=== PATIENT | male | born 1950 | race Caucasian/White ===

== ENCOUNTER 2020-11-09 03:59 | Inpatient (IN) ==
[2020-11-09] MEDS ORDERED: Magnesium Sulfate IV 3 GM in NS 0.9% 100 ml BAG 100 ML IVPB ONE (04:39)
[2020-11-09 05:32] LABS: Urine Appearance Clear; Urine Bilirubin Negative (Negative); Urine Blood Negative (Negative); Urine Color Yellow; Urine Glucose Negative (Negative); Urine Ketones Negative (Negative); Urine Nitrite Negative (Negative); Urine Protein Negative (Negative); Urine Specific Gravity 1.026 (1.010-1.030); Urine Urobilinogen Negative (Negative)
[2020-11-09 06:01] LABS: Troponin I 0.41 ng/mL (<0.03)
[2020-11-09 06:03] LABS: ALT 60 U/L (7-52); AST 41 U/L (13-39); Albumin 3.9 g/dL (3.2-5.2); Albumin/Globulin Ratio 1.7 (1-3); Alkaline Phosphatase 47 U/L (34-104); Anion Gap 10 mmol/L (2-11); BUN/Creatinine Ratio 24.6 (8-20); Blood Urea Nitrogen 29 mg/dL (6-24); CO2 Carbon Dioxide 24 mmol/L (22-32); Calcium 12.4 mg/dL (8.6-10.3); Chloride 106 mmol/L (101-111); Cholesterol 122 mg/dL; EGFR African American 73.4 (>60); EGFR Non-African American 60.7 (>60); Globulin 2.3 g/dL (2-4); Glucose 179 mg/dL (70-100); HDL Cholesterol 33.8 mg/dL; LDL Cholesterol 52 mg/dL; Magnesium 1.5 mg/dL (1.9-2.7); Potassium 3.9 mmol/L (3.5-5.0); Sodium 140 mmol/L (135-145); Total Protein 6.2 g/dL (6.4-8.9); Triglycerides 179 mg/dL
[2020-11-09 06:17] LABS: TSH Ultra Thyroid Stim Horm 7.43 mcIU/mL (0.34-5.60)
[2020-11-09 06:19] LABS: Free T4 0.87 ng/dL (0.61-1.12)
[2020-11-09 06:30] LABS: Vitamin D Total 25(OH) 30.6 ng/mL (20-50)
[2020-11-09 08:16] LABS: Troponin I 0.47 ng/mL (<0.03)
[2020-11-09 08:26] LABS: ABS Eosinophils 0.1 10^3/ul (0-0.6); ABS Lymphocytes 0.5 10^3/ul (1.0-4.8); ABS Monocytes 0.6 10^3/ul (0-0.8); ABS Neutrophils 3.3 10^3/ul (1.5-7.7); Eosinophil % 1.6 %; Hematocrit 37 % (42-52); Hemoglobin 12.9 g/dL (14.0-18.0); Lymphocyte % 11.5 %; Mean Corpuscular HGB Conc 35 g/dL (31-36); Mean Corpuscular Hemoglobin 31 pg (27-31); Mean Corpuscular Volume 91 fL (80-94); Mean Platelet Volume 8.4 fL (7.4-10.4); Platelet Count 177 10^3/uL (150-450); Red Blood Count 4.12 10^6 /uL (4.18-5.48); Red Cell Distribution Width 13 % (10-15); White Blood Count 4.5 10^3/uL (3.5-10.8)
[2020-11-09] MEDS ORDERED: NS 0.9% 1000 ml BAG 1,000 ML IV SCH (11:00)
[2020-11-09 11:29] LABS: Phosphorus 3.2 mg/dL (2.5-5.0)
[2020-11-09 11:33] LABS: Troponin I 0.45 ng/mL (<0.03)
[2020-11-09] MEDS ORDERED: Potassium Chloride LIQUID 20 MEQ/15 ML LIQUID PO ONE (12:54)
[2020-11-09 13:20] LABS: EGFR African American 69.3 (>60); EGFR Non-African American 57.3 (>60); Magnesium 2.1 mg/dL (1.9-2.7)
[2020-11-09] MEDS: Enoxaparin 80 MG/0.8 ML SYR SUBCUT SCH (13:33)
[2020-11-09] MEDS ORDERED: Midazolam 5 mg/5 ml VIAL 1 mg/ml 5 ml VIAL (5 mg) ONE (13:59)
[2020-11-09] MEDS ORDERED: nitroGLYCERIN DRIP 25,000 MCG/250 ML BTL ONE (13:59)
[2020-11-09] MEDS ORDERED: Heparin 1,000 UNIT/ML 10 ml (10,000 UNITS) CATHLAB/DIALYSIS ONE (13:59)
[2020-11-09] MEDS ORDERED: Heparin 2 UNITS/ML 1000 mls 2,000 ML IV ONE (13:59)
[2020-11-09] MEDS ORDERED: fentaNYL 100 mcg/2 ml 50 MCG/ML VIAL ONE (13:59)
[2020-11-09] MEDS ORDERED: VERAPAMIL 2.5 MG/ML 2 ML VIAL ** 5 mg/2 ml ONE (13:59)
[2020-11-09] MEDS ORDERED: Iohexol 350 (CONTRAST) 200 ML MDV IV ONE (14:00)
[2020-11-09] MEDS ORDERED: Lidocaine 1% VIAL 10 MG/ML VIAL ONE (14:00)
[2020-11-09 14:01] LABS: Creatine Kinase 131 U/L (10-223)
[2020-11-10] MEDS: Enoxaparin 80 MG/0.8 ML SYR SUBCUT SCH ×3 (01:18→23:46)
[2020-11-10] MEDS ORDERED: Isosorbide Mononit ER 30mg TAB PO ONE (01:50)
[2020-11-10 06:54] LABS: ABS Eosinophils 0.1 10^3/ul (0-0.6); ABS Lymphocytes 0.5 10^3/ul (1.0-4.8); ABS Monocytes 0.6 10^3/ul (0-0.8); Hematocrit 34 % (42-52); Hemoglobin 11.6 g/dL (14.0-18.0); Lymphocyte % 8.8 %; Mean Corpuscular HGB Conc 34 g/dL (31-36); Mean Corpuscular Hemoglobin 31 pg (27-31); Mean Corpuscular Volume 90 fL (80-94); Platelet Count 149 10^3/uL (150-450); Red Blood Count 3.73 10^6 /uL (4.18-5.48); Red Cell Distribution Width 13 % (10-15); White Blood Count 5.1 10^3/uL (3.5-10.8)
[2020-11-10 07:05] LABS: ALT 57 U/L (7-52); AST 37 U/L (13-39); Albumin 3.5 g/dL (3.2-5.2); Albumin/Globulin Ratio 1.5 (1-3); Alkaline Phosphatase 48 U/L (34-104); Anion Gap 5 mmol/L (2-11); BUN/Creatinine Ratio 18.7 (8-20); Blood Urea Nitrogen 23 mg/dL (6-24); CO2 Carbon Dioxide 25 mmol/L (22-32); Chloride 108 mmol/L (101-111); EGFR Non-African American 57.8 (>60); Globulin 2.4 g/dL (2-4); Glucose 154 mg/dL (70-100); Magnesium 1.5 mg/dL (1.9-2.7); Potassium 3.9 mmol/L (3.5-5.0); Sodium 138 mmol/L (135-145); Total Protein 5.9 g/dL (6.4-8.9)
[2020-11-10 07:08] LABS: % Iron Saturation 20 % (15-55); Iron 68 ug/dL (50-212); Total Iron Binding Capacity 346 mcg/dL (250-450); Transferrin 247 mg/dL (203-362); Unsaturated Iron Binding < 331 ug/dL
[2020-11-10 07:24] LABS: Ferritin 18.5 ng/mL (24-336)
[2020-11-10] MEDS ORDERED: Magnesium Sulf 4 GM/100 ML IV 4,000 MG/100 ML BAG IVPB ONE (08:11)
[2020-11-10] MEDS ORDERED: Pneumococcal Vac 23-Polyvalent IM ONE (09:00)
[2020-11-10] MEDS ORDERED: NS 0.9% 1000 ml BAG 1,000 ML IV SCH (13:30)
[2020-11-11] MEDS ORDERED: Isosorbide Mononit ER 30mg TAB PO SCH (01:00)
[2020-11-11 06:39] LABS: ABS Eosinophils 0.1 10^3/ul (0-0.6); ABS Lymphocytes 0.5 10^3/ul (1.0-4.8); ABS Monocytes 0.7 10^3/ul (0-0.8); Hematocrit 34 % (42-52); Hemoglobin 11.8 g/dL (14.0-18.0); Lymphocyte % 9.1 %; Mean Corpuscular HGB Conc 35 g/dL (31-36); Mean Corpuscular Hemoglobin 31 pg (27-31); Mean Corpuscular Volume 89 fL (80-94); Platelet Count 152 10^3/uL (150-450); Red Blood Count 3.79 10^6 /uL (4.18-5.48); Red Cell Distribution Width 13 % (10-15); White Blood Count 5.2 10^3/uL (3.5-10.8)
[2020-11-11 06:57] LABS: BUN/Creatinine Ratio 15.2 (8-20); Calcium 10.5 mg/dL (8.6-10.3); EGFR African American 68.7 (>60); EGFR Non-African American 56.8 (>60); Magnesium 1.7 mg/dL (1.9-2.7); Potassium 3.8 mmol/L (3.5-5.0)
[2020-11-11] MEDS ORDERED: Magnesium Sulf 4 GM/100 ML IV 4,000 MG/100 ML BAG IVPB ONE (08:03)
[2020-11-11] MEDS: Enoxaparin 80 MG/0.8 ML SYR SUBCUT SCH (13:13)
[2020-11-11 16:47] VITALS: BP 180/90
[2020-11-11 17:26] LABS: Albumin 3.3 g/dL (3.4-4.7); Albumin/Globulin Ratio 1.19; Gamma Globulin 0.7 g/dL (0.6-1.6)
[2020-11-11 21:11] LABS: Kappa Free Light Chain 3.87 mg/dL; Lambda Free Light Chain 2.34 mg/dL
[2020-11-15 15:06] LABS: PTH Related Peptide 0.8 pmol/L (< or = 4.2)
[2020-11-15 16:41] LABS: Beta 2 Microglobulin 7.15 mcg/mL
[2020-11-15 18:57] LABS: Urine Kappa/Lambda Light Chain >2.57
== END 2020-11-11 17:30 | disposition home or self-care (01) | DRG 281 ==
LOC: ED 03:59 → MEDTELE 03:59
PROVIDERS: ADMIT Internal Medicine; ATTEND Internal Medicine

== ENCOUNTER 2021-01-12 11:31 | Inpatient (IN) ==
[~2021-01-12 11:31] MED LIST: Buffered Lidocaine 1% SYRIN 1 ml INTRADERM ONE; Famotidine IV 10 MG/ML 2 ml VIAL (20 mg) IV ONE; Lactated Ringers 1000 ml BAG 1,000 ML IV SCH
[2021-01-12] MEDS ORDERED: Famotidine IV 10 MG/ML 2 ml VIAL (20 mg) ONE (11:59)
[2021-01-12] MEDS ORDERED: Lidocaine 2% PF 5 ML VIAL ONE (13:51)
[2021-01-12] MEDS ORDERED: fentaNYL 250 mcg/5 ml 50 MCG/ML 5 ml VIAL (250 MCG) ONE (13:51)
[2021-01-12] MEDS ORDERED: Rocuronium 50 mg VIAL 10 mg/ml 5 ml VIAL (50 mg) ONE (13:54)
[2021-01-12] MEDS ORDERED: Propofol 10 MG/ML 20 ML BTL ONE (13:54)
[2021-01-12] MEDS ORDERED: Benzocaine/Butamben/Tetracain (CETACAINE - SINGLE USE) 5 gm TOPICAL ONE (14:03)
[2021-01-12] MEDS ORDERED: oxyCODONE/Acetamin 5/325 mg TAB PO PRN (14:33)
[2021-01-12] MEDS ORDERED: fentaNYL 100 mcg/2 ml 50 MCG/ML VIAL IV PRN (14:33)
[2021-01-12] MEDS ORDERED: HYDROcodone/ACETAMIN 5/325 mg TAB PO PRN (14:33)
[2021-01-12] MEDS ORDERED: Naloxone 0.4 mg VIAL 0.4 mg/ml 1 ml VIAL IV PRN (14:33)
[2021-01-12] MEDS ORDERED: DiMENhydriNATE IV 50 mg/ml 1 ml VIAL IV PUSH PRN (14:33)
[2021-01-12] MEDS ORDERED: Ondansetron 4 mg VIAL 2 MG/ML 2 ml VIAL ONE (15:52)
[2021-01-12] MEDS ORDERED: Dexamethasone IV 4 MG/ML VIAL 1 ml VIAL ONE (15:52)
[2021-01-12 17:04] LABS: ABS Eosinophils 0.1 10^3/ul (0-0.6); ABS Lymphocytes 0.4 10^3/ul (1.0-4.8); ABS Monocytes 0.2 10^3/ul (0-0.8); ABS Neutrophils 3.5 10^3/ul (1.5-7.7); Hematocrit 34 % (42-52); Hemoglobin 11.4 g/dL (14.0-18.0); Lymphocyte % 9.2 %; Mean Corpuscular HGB Conc 34 g/dL (31-36); Mean Corpuscular Hemoglobin 31 pg (27-31); Mean Corpuscular Volume 90 fL (80-94); Mean Platelet Volume 7.8 fL (7.4-10.4); Platelet Count 147 10^3/uL (150-450); Red Blood Count 3.72 10^6 /uL (4.18-5.48); Red Cell Distribution Width 14 % (10-15); White Blood Count 4.2 10^3/uL (3.5-10.8)
[2021-01-12 17:13] LABS: Activated Partial Thrombo Time 30.8 seconds (26.0-38.0); INR 1.04 (0.82-1.09)
[2021-01-12 17:15] LABS: Albumin 3.9 g/dL (3.2-5.2); Albumin/Globulin Ratio 1.5 (1-3); BUN/Creatinine Ratio 22.8 (8-20); EGFR African American 76.4 (>60); EGFR Non-African American 63.1 (>60); Globulin 2.6 g/dL (2-4); Potassium 4.4 mmol/L (3.5-5.0); Total Bilirubin 0.7 mg/dL (0.2-1.0); Total Protein 6.5 g/dL (6.4-8.9)
[2021-01-13 03:48] LABS: ABS Lymphocytes 0.4 10^3/ul (1.0-4.8); ABS Monocytes 0.2 10^3/ul (0-0.8); ABS Neutrophils 6.3 10^3/ul (1.5-7.7); Eosinophil % 0.1 %; Hematocrit 34 % (42-52); Lymphocyte % 5.6 %; Mean Corpuscular HGB Conc 35 g/dL (31-36); Mean Corpuscular Hemoglobin 31 pg (27-31); Mean Corpuscular Volume 89 fL (80-94); Mean Platelet Volume 7.8 fL (7.4-10.4); Platelet Count 164 10^3/uL (150-450); Red Blood Count 3.86 10^6 /uL (4.18-5.48); Red Cell Distribution Width 14 % (10-15); White Blood Count 6.9 10^3/uL (3.5-10.8)
[2021-01-13 04:03] LABS: Albumin 4.1 g/dL (3.2-5.2); Albumin/Globulin Ratio 1.6 (1-3); BUN/Creatinine Ratio 23.6 (8-20); EGFR Non-African American 57.8 (>60); Globulin 2.6 g/dL (2-4); Potassium 4.8 mmol/L (3.5-5.0); Total Bilirubin 0.6 mg/dL (0.2-1.0); Total Protein 6.7 g/dL (6.4-8.9)
[2021-01-13 04:30] LABS: Folate 16.14 ng/mL (>3.99)
[2021-01-13] MEDS ORDERED: Dextrose 50% Syringe 50 ml 25 GM/50 ML SYRINGE IV PUSH PRN (05:01)
[2021-01-13 11:07] VITALS: BP 149/85
== END 2021-01-13 11:05 | disposition home or self-care (01) | DRG 921 ==
LOC: OR 11:31 → ICU 17:13
PROVIDERS: ADMIT Internal Medicine; ATTEND Internal Medicine